=== PATIENT | male | born 1940 | race Caucasian/White ===

== ENCOUNTER 2017-03-06 14:28 | Inpatient (IN) ==
[2017-03-06] MEDS ORDERED: PANTOPRAZOLE 40 MG VIAL IV STA (16:17)
[2017-03-06] MEDS ORDERED: ONDANSETRON 4 MG/2 ML VIAL IV STA (16:17)
[2017-03-06] MEDS ORDERED: SODIUM CHLORIDE 0.9% 500 ML IV STA (16:17)
--- NOTE | 2017-03-06 16:25 | Emergency Department Note ---
Alexandru Hope Mantricia, am scribing for, and in the presence of, Erick Patel MD 15:28. Jorge Hope Charles R, MD, personally performed the services described in this documentation, ascribed by Jere Horvath in my presence, and it is both accurate and complete 625 . Arrival - Arrival Chief Complaint: GI Bleed/Rectal Stated Complaint: black stool, sob ED Nursing Triage Note: pt has an ulcer but is not taking med for it due to cost. has been taking herbals pepto. pt had 3 black stools this am Mode of Arrival: Ambulatory Limitations: No Limitations Source: Patient Time Seen by Provider: 03/06/17 14:56 - History of Present Illness HPI Narrative: Pt is a 76 y/o male ambulating to ED with c/o melena that onset yesterday. He reports that he has a stomach ulcer but denies taking an medications for it due to the cost. He reports that he has been practicing using herbals and taking pepto bismol for bloating. He denies taking any blood thinners and using kavita as a remedy. He states that he purposefully lost 40 pounds of weight in the last year for health benefits. Pt is unaware if he has had a colonoscopy. He reports no other complaints to ED. Onset (ago): hour(s) Consistency: constant Severity: mild Allergies/Adverse Reactions: Allergies Allergy/AdvReac Type Severity Reaction Status Date / Time No Known Allergies Allergy Unverified 03/06/17 14:33 Home Medications: Home Medications Medication Instructions Recorded Confirmed Type Unable To Obtain [Unable to Obtain] 03/06/17 03/06/17 History Review of System - Review of System 12 point system: reviewed and no additional remarkable complaints except as stated - Review of System Constitutional: Absent: chills, diaphoresis, fever Eyes: Absent: pain Respiratory: Present: other (SOB). Absent: cough Cardiovascular: Absent: chest pain Gastrointestinal: Present: melena. Absent: abdominal pain, nausea, vomiting, diarrhea Medical,Surgical,& Family Hx - Medical History Cardio: History of: Hypertension, Pacemaker - Social History Smoking Status: Never smoker Frequency of Alcohol Use: None Type of Drug Use: None Exam Vital Signs: Vital Signs Temperature 98.0 F 03/06/17 14:30 Pulse Rate 91 H 03/06/17 17:00 Respiratory Rate 18 03/06/17 17:00 Blood Pressure 127/107 03/06/17 17:00 O2 Sat by Pulse Oximetry 96 03/06/17 17:00 - General General appearance: alert, in no apparent distress - Head Head exam: Present: atraumatic, normocephalic, normal inspection - Eye Eye exam: Present: normal appearance, PERRL, EOMI - ENT ENT exam: Present: normal exam, normal oropharynx, mucous membranes moist, TM's normal bilaterally, normal external ear exam - Neck Neck exam: Present: normal inspection, full ROM, trachea midline. Absent: tenderness - Chest Chest inspection: Present: normal inspection, symmetric chest wall rise. Absent : tenderness - Respiratory Respiratory exam: Present: rales, rhonchi - Cardiovascular Cardiovascular exam: Present: normal rhythm, tachycardia, normal heart sounds - Abdominal Exam Abdominal exam: Present: soft, other (decreased bowel sounds). Absent: distention, tenderness, guarding, rebound - Rectal Exam Rectal exam: Present: heme (-) stool, hemorrhoids - Extremities Exam Extremities exam: Present: normal inspection, full ROM, normal capillary refill , other (+1 pitting edema LE bilat). Absent: tenderness, pedal edema - Back Exam Back exam: Present: full ROM, other (huge lipoma present ). Absent: tenderness - Neurological Exam Neurological exam: Present: alert, oriented X3, CN II-XII intact, normal gait, reflexes normal - Psychiatric Psychiatric exam: Present: normal affect, normal mood - Skin Skin exam: Present: warm, dry, intact, normal color Course - Consultations Consultation #1: Hospitalist will admit patient Time: 18:48 Results - Labs CBC & BMP: 03/06/17 15:31 03/06/17 15:31 Lab Results: I have reviewed the patients labs Disposition Clinical Impression: Fatty lipoma back, Atrial fibrillation with RVR, Uncontrolled hypertension, Acute dyspnea, Congestive heart failure, Exertional dyspnea Case discussed with: patient, patient's family Disposition: Still a Patient Condition: Stable Time of Disposition: 18:49
[2017-03-06 16:31] LABS: Basophils # 0.1 10*3/uL (0.0-0.2); Basophils % 1.5 % (0.0-0.8); Eosinophils # 0.2 10*3/uL (0.0-0.87); Eosinophils % 2.4 % (0.00-10.9); Hematocrit 48.5 VOL% (42.0-52.0); Hemoglobin 16.4 GM/DL (14.0-18.0); Immature Granulocytes % 0.1 %; Immature Granulocytes Absolute 0.01 #; Mean Corpuscular HGB Conc 33.8 GM/DL (32-36); Mean Corpuscular Hemoglobin 29 PG (27-34); Mean Corpuscular Volume 85.8 FL (87-102); Mean Platelet Volume 12.3 FL (9.6-12.0); Monocytes # 0.7 10*3/uL (0.11-0.8); Monocytes % 8.7 % (1.7-12.7); Neutrophils # 4.6 10*3/uL (1.4-7.4); Neutrophils % 60.3 % (38.7-73.9); Platelet Count 218 T/CUMM (130-400); Red Blood Count 5.65 MC/CUMM (3.8-5.5); Red Cell Distribution Width 15.9 % (9.3-17.3); White Blood Count 7.6 T/CUMM (4-12)
--- NOTE | 2017-03-06 16:33 | EKG Report ---
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
[2017-03-06 16:35] LABS: INR 1.1; PT Patient Result 11.8 SECS
[2017-03-06 16:42] LABS: Alanine Aminotransferase 21 U/L (16-61); Albumin 3.9 G/DL (3.4-5.0); Alkaline Phosphatase 58 U/L (45-117); Aspartate Amino Transferase 23 U/L (0-37); Blood Urea Nitrogen 25 MG/DL (7-18); Calcium 9.5 MG/DL (8.5-10.1); Total Protein 7.1 G/DL (6.4-8.3)
--- NOTE | 2017-03-06 16:42 | XRay Report ---
XR chest 1V portable Indication: Shortness of breath Comparison: None. Technique: Portable AP chest was performed. Findings: The heart borderline in size to minimally enlarged. 2-lead cardiac pacemaker is present. There is a large rounded density overlying the upper chest that partially obscures the lung parenchyma of the upper chest. Pulmonary vasculature demonstrates no specific abnormality. Hilar structures demonstrate fairly symmetric appearance. The lungs lungs demonstrate nonspecific pattern of interstitial stranding in the perihilar regions. Blunting of the costophrenic angles is present bilaterally slightly more prevalent on the right. Bones and soft tissues demonstrate no evidence of acute pathology. Impression: 1. Appearance of the chest could reflect mild congestive heart failure nonspecific features acute reflect minimal interstitial pulmonary edema. 2. Small bilateral pleural effusions are suggested. 3. Large density in the upper chest is uncertain etiology. 03/06/2017 4:38 PM PROCEDURE INTERPRETED AT [facility] DEPARTMENT OF RADIOLOGY Final Report Signed by: Dr. Ruy Shannon
[2017-03-06 16:43] LABS: Glucose 103 MG/DL (74-106); Magnesium 2.5 MG/DL (1.8-2.4); Osmolality,Calculated 284.3 MOS/KG (273-304); Potassium 4.2 MMOL/L (3.5-5.1); Sodium 141 MMOL/L (136-145); Troponin I Only < 0.015 NG/ML (0.00-0.045)
--- NOTE | 2017-03-06 16:43 | XRay Report ---
XR abdomen 2V Indication: Abdominal pain. Comparison: None. Technique: Flat and erect images of the abdomen were performed. Findings: Lung bases are clear. Small bilateral pleural effusions are suggested. No organomegaly suggested. The bowel gas pattern demonstrates no significant abnormality. Bony structures as well as soft tissues demonstrate no evidence of significant pathology. Impression: 1. No active process is suggested within the abdomen or pelvis. 03/06/2017 4:39 PM PROCEDURE INTERPRETED AT [facility] DEPARTMENT OF RADIOLOGY Final Report Signed by: Dr. Ruy Shannon
[2017-03-06] MEDS ORDERED: FUROSEMIDE 40 MG/4 ML VIAL IV STA (16:46)
[2017-03-06 17:10] LABS: Ammonia < 10 UMOL/L (11-32)
[2017-03-06] MEDS ORDERED: PANTOPRAZOLE 40 MG VIAL IV ONE (18:31)
[2017-03-06] MEDS ORDERED: FUROSEMIDE 40 MG/4 ML VIAL ONE (18:31)
[2017-03-06] MEDS ORDERED: ONDANSETRON 4 MG/2 ML VIAL ONE (18:31)
[2017-03-06] MEDS ORDERED: FUROSEMIDE 20 MG/2 ML VIAL ONE (18:31)
[2017-03-06] MEDS ORDERED: DILTIAZEM 50 MG/10 ML VIAL IV STA (18:32)
[2017-03-06] MEDS ORDERED: ASPIRIN EC 325 MG TABLET PO STA (18:50)
[2017-03-06] MEDS ORDERED: ASPIRIN EC 325 MG TABLET PO ONE (19:15)
[2017-03-06] MEDS ORDERED: DILTIAZEM 50 MG/10 ML VIAL IV ONE (19:15)
--- NOTE | 2017-03-06 19:34 | Hospitalist History & Physical ---
Assessment and Plan - Time spent with patient Time spent with patient: Greater than 30 minutes (1) Atrial fibrillation with RVR Status: Acute Assessment and plan: Patient has atrial fibrillation with rapid ventricular response. It sounds as if he has had this in the past along with sick sinus syndrome requiring pacemaker placement approximately 4 years ago. He has been off many medications in quite a while. We will admit him for continued cardiac monitoring. I will add beta-blockers to her current regimen for blood pressure and rate control. Will obtain echocardiogram in the a.m. to assess LV function , valvular anatomy, wall motion abnormality. Will consult cardiology to assist with further evaluation and recommendations. His increasing fatigue and progressive dyspnea is likely cardiac in etiology. We will also obtain TSH, hemoglobin A1c, serial cardiac biomarkers, lipid panel. Will begin Lovenox subcu 80 mg every 12 hours. Current Visit: Yes (2) Uncontrolled hypertension Status: Acute Assessment and plan: His hypertension for which he is currently taking no medications. Have added beta-brant at this time for rate control and blood pressure control. We will continue to monitor and make further adjustments based on his response and the results of the pending data. Current Visit: Yes (3) Weight loss Status: Chronic Assessment and plan: He has had 40-45 pound weight loss which he claims is intentional over the past 13 months. Continue to monitor and consider outpatient evaluation for other etiologies to include routine upper and lower endoscopic exam. Current Visit: Yes History of Present Illness Chief complaint: Fatigue, shortness of breath History of present illness: Mr. Wilkerson is a 76 year old white male who states that over the past 3 months he has noted progressive fatigue and dyspnea. This is worsened over the past 2- 3 weeks. He states he saw his primary care provider and was told that he had a stomach ulcer however he was unable to take his medication secondary to cost. He has been taking Pepto-Bismol and noted some dark stools which he thought was blood which caused him to come to the emergency department today. He was noted to have Hemoccult negative stool however during that evaluation was noted to have atrial fibrillation with rapid ventricular response. Patient states that he has had atrial fibrillation in the past and actually had a pacemaker placed in [facility] approximately 4 years ago. He states he is currently on no medications and prefers to use herbal or natural products. He has been on anticoagulation in the past but did not tolerate secondary to bleeding in his mouth, particularly Xarelto. He denies any chest pain, fever, chills, cough, sputum production, focal motor weakness or paresthesias. He states that he has awakened at night certainly on several occasions feeling somewhat disoriented like his oxygen level may be low. He denies any snoring but his indicates otherwise. He also notes approximately 40-45 pound weight loss which has been intentional over the past 13 months since her perinatal director in [facility] advised him to exercise and lose weight. He does have dyspnea on exertion but is unable to quantitate as it seems to be variable on a daily basis. He denies any orthopnea. He is a full code at this time. Home Medications Medication Instructions Recorded Confirmed Type Unable To Obtain [Unable to Obtain] 03/06/17 03/06/17 History Allergies Allergy/AdvReac Type Severity Reaction Status Date / Time No Known Allergies Allergy Unverified 03/06/17 14:33 Medical,Surgical,& Family Hx - Medical History Cardio: History of: Cardiac Dysrhythmia, Hypertension, Pacemaker Endocrine: History of: Diabetes Mellitus (NIDDM) (He states he was told he had borderline diabetes ) - Surgical History Abdominal Surgeries: Surgical HX of: Appendectomy - Family History Family History: Reports;: Family Heart Disease - Social History Smoking Status: Former smoker (Quit years ago) Frequency of Alcohol Use: None Type of Drug Use: None 12 point system: reviewed and no additional remarkable complaints except as stated Exam - Constitutional Vitals: Period Temp Pulse Resp BP Sys/Chambers Pulse Ox Last 24 Hr 98.0 F-98.0 F 91-126 18-18 127-163/98-113 96-99 General appearance: no acute distress - Head Head exam: Present: normocephalic, atraumatic - Eye Eye exam: Present: EOMI Pupils: Present: ALE - ENT ENT exam: Present: normal exam - Neck Neck exam: Present: normal inspection. Absent: lymphadenopathy, meningismus, tenderness, thyromegaly - Respiratory Respiratory exam: Present: chest wall tenderness, rales (Few faint rales in the bases bilaterally). Absent: stridor, wheezes - Cardiovascular Cardiovascular exam: Present: irregular rhythm, tachycardia. Absent: JVD, systolic murmur - GI/Abdominal GI/Abdominal exam: Present: normal bowel sounds, soft. Absent: mass, tenderness , rebound - Extremities Exam Extremities exam: Present: normal capillary refill, edema (Trace pedal edema). Absent: calf tenderness - Back Exam Back exam: Present: normal inspection - Neurological Exam Neurological exam: Present: alert, oriented X3, CN II-XII intact. Absent: motor sensory deficit - Psychiatric Psychiatric exam: Present: normal affect, normal mood. Absent: agitated, anxious - Skin Skin exam: Present: warm, dry, other (Large lipoma on upper back). Absent: erythema, petechiae, rash Results - Labs CBC & BMP: 03/06/17 15:31 03/06/17 15:31 Lab Results: I have reviewed the past 24 hour labs - EKG EKG shows: atrial fibrillation - Diagnostic Findings Procedure: Chest x-ray: report reviewed by me, KUB x-ray: report reviewed by me
[2017-03-06] MEDS ORDERED: ONDANSETRON 4 MG/2 ML VIAL IV PRN (21:23)
[2017-03-06] MEDS: METOPROLOL TARTRATE 25 MG TABLET PO SCH (21:35)
[2017-03-06] MEDS: ENOXAPARIN 80 MG/0.8 ML SYRINGE SUBCUT SCH (21:35)
[2017-03-07 01:52] LABS: Calcium 8.9 MG/DL (8.5-10.1); Magnesium 2.5 MG/DL (1.8-2.4); Potassium 3.9 MMOL/L (3.5-5.1); Risk Ratio 6.2; Thyroid Stimulating Hormone 2.65 uIU/ml (0.358-3.74); VLDL CHOLESTEROL 28.2 MG/DL
[2017-03-07 03:08] LABS: Basophils # 0.1 10*3/uL (0.0-0.2); Basophils % 1.2 % (0.0-0.8); Eosinophils # 0.3 10*3/uL (0.0-0.87); Eosinophils % 4.4 % (0.00-10.9); Hematocrit 43.4 VOL% (42.0-52.0); Immature Granulocytes % 0.3 %; Immature Granulocytes Absolute 0.02 #; Lymphocytes # 2.4 10*3/uL (1.4-4.0); Lymphocytes % 32.5 % (21.2-54.2); Mean Corpuscular HGB Conc 34.6 GM/DL (32-36); Mean Corpuscular Hemoglobin 30 PG (27-34); Mean Corpuscular Volume 85.8 FL (87-102); Mean Platelet Volume 11.5 FL (9.6-12.0); Monocytes # 0.7 10*3/uL (0.11-0.8); Monocytes % 9.6 % (1.7-12.7); Neutrophils # 3.8 10*3/uL (1.4-7.4); Platelet Count 190 T/CUMM (130-400); Red Blood Count 5.06 MC/CUMM (3.8-5.5); Red Cell Distribution Width 15.8 % (9.3-17.3); White Blood Count 7.3 T/CUMM (4-12)
[2017-03-07] MEDS: METOPROLOL TARTRATE 25 MG TABLET PO SCH ×2 (08:29→22:00)
[2017-03-07] MEDS: ASPIRIN 325 MG TABLET PO SCH (08:29)
[2017-03-07] MEDS: ENOXAPARIN 80 MG/0.8 ML SYRINGE SUBCUT SCH (08:30)
--- NOTE | 2017-03-07 14:34 | Hospitalist Progress Note ---
Assessment and Plan (1) Atrial fibrillation with RVR Status: Resolved Assessment and plan: Now rate controlled. Current Visit: Yes (2) Uncontrolled hypertension Status: Chronic Current Visit: Yes (3) Congestive heart failure Status: Acute Assessment and plan: Follow-up echocardiogram and cardiology consult. Current Visit: Yes Qualifiers: Congestive heart failure type: unspecified congestive heart failure type Congestive heart failure chronicity: unspecified congestive heart failure chronicity Qualified Code(s): I50.9 - Heart failure, unspecified Hospitalist: Subjective Interval history: Patient seen and examined. No acute events overnight. Case discussed with nursing staff. Labs reviewed. He feels much better this morning. Exam - Constitutional Vitals: Period Temp Pulse Resp BP Sys/Chambers Pulse Ox Last 24 Hr 97 F-97.6 F 67-119 16-20 114-163/64-113 90-99 Exam: Constitutional System: No distress. No tremulousness. Head: Normocephalic, atraumatic. Ears, Nose and Throat System: No pain or tenderness. No epistaxis or discharge Eyes System: Pupils equal, round, and reactive. Extraocular muscles intact. Neck: Supple, without adenopathy, No jugular venous distention. No thyromegaly, neck mass, or prior surgery apparent. Respiratory System: Chest clear to auscultation. Cardiovascular System: Heart with regular rate and rhythm. No murmur. GI System: Abdomen soft, nontender. Normo active bowel sounds present. Musculoskeletal System: limbs with no pedal edema. Full distal pulses. Neurological System: No discernable sensory deficit. No aphasia Psychiatric System: Conversation is rational Results - Labs CBC & BMP: 03/07/17 02:38 03/07/17 00:47 Lab Results: I have reviewed the past 24 hour labs - Diagnostic Findings Procedure: Chest x-ray: image reviewed by me, report reviewed by me
--- NOTE | 2017-03-07 15:15 | Cardiology Consult Note ---
Fawad Hope April RN, am scribing for, and in the presence of, Suresh Connell MD 15:15. Assessment and Plan - Time spent with patient Time spent with patient: Greater than 30 minutes (Due to assessment, planning, documentation, medication review) (1) Hypertension Status: Chronic Current Visit: Yes (2) Atrial fibrillation with RVR Status: Resolved Current Visit: Yes (3) Congestive heart failure Status: Acute Current Visit: Yes Qualifiers: Congestive heart failure type: unspecified congestive heart failure type Congestive heart failure chronicity: unspecified congestive heart failure chronicity Qualified Code(s): I50.9 - Heart failure, unspecified (4) Exertional dyspnea Status: Acute Current Visit: Yes History of Present Illness - Data of Consult Patient: new to practice Consult date: 03/06/17 Requesting Physician: Mitch Mclean - Consult Narrative Reason for consult: Atrial fibrillation, shortness of breath History of present illness: 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 Wilkerson is a 76 year old male who has never seen a process mold technician in this area. He moved to this area about 13 months ago. Before that time he had been in [place] and had seen several cardiologists there, most recently in [place], [place] about 2 years ago where he was told he had an enlarged heart. At that time they told him he needed to exercise and lose weight. He says he has exercised and changed his diet and has lost about 45 pounds in the last year. He saw a process mold technician in [place] about 4 years ago. According to him his heart rate was elevated and he was started on medicine which he thinks was digoxin. He says this medicine caused his heart rate to go to down to 18 bpm and he had a pacemaker placed at that time. He reports he was also started on Xarelto which caused issues with bleeding. He stopped the Xarelto and since then he has treated himself with kavita to keep his blood thin. He also says he had a stress test done about 4 years ago and is not aware of the results. Approximately 10 years ago he reports he had a stent placed, he has had no heart catheterization done since that time. Other medical history includes hypertension, possibly borderline diabetes, and pancreatitis. He has had an appendectomy. Family history is positive for father with heart disease and seizures and sister with stroke. He does not currently smoke states he smoked for about a year in 1989. We will try to get his cardiac records from [place]. For about the last 3 months he has not been sleeping well, stating he would wake up feeling short of breath and anxious. He also reports dyspnea on exertion during this time. For the last several months he is also experienced dizziness and weakness. Yesterday he noticed his stool was black so he presented to the emergency department for further evaluation. He was recently told he had an ulcer, but never picked up the medication that was ordered because of expense. He has been taking Pepto-Bismol, and thought the black stool could be related to the Pepto-Bismol. His blood pressure was elevated on admission, as high as 160/110. EKG on admission showed atrial fibrillation with heart rate of 96. According the vital sign record, his heart rate was also in the 120s while in the emergency department. Chest x-ray was indicative of mild congestive heart failure and small bilateral pleural effusions. Abdominal x-ray indicated no active process within the abdomen or pelvis. He was given Cardizem 2 mg IV 1 dose, Lasix 60 mg IV 1 dose in the emergency department and also started on aspirin 325 mg, Lopressor 25 mg p.o. twice daily , and Lovenox injections. He reports he has had good urine output since then and states his breathing is much better. He states he slept well last night. He said he started the night with the head of the bed elevated, but during the night he lowered it to flat and still was able to breathe without difficulty. He denies having any chest pain or palpitations. An echocardiogram has been ordered. athletic monitor currently shows atrial fibrillation with heart rates in the 90s. Lab data today: White count 7.3 hemoglobin 15.0 hematocrit 43.4 Sodium 143 potassium 3.9 chloride 109 CO2 26 BUN 27 creatinine 1.2 Hemoglobin A1c 5.8 Magnesium 2.5 Troponin negative 4 BNP 859 Triglycerides 141 cholesterol 186 LDL 135 HDL 30 Cardiology addendum patient examined chart reviewed discussed with nurse Luiza Celestin RN. Chronic atrial fibrillation admitted last night with rapid rate. Patient takes no medications. Status post dual-chamber pacemaker 2013 in [place]. Status post stent 2006 [place], [place]. 5 feet 8 inches tall 181 pounds. Patient has lost 45 pounds in the last 13 months by dieting. Gigantic lipoma upper back Chest x-ray shows cardiomegaly with CHF. BNP level 859. EKG shows atrial fibrillation with left axis deviation and diffuse ST-T wave changes. No history of angina. Developed bleeding gums with Xarelto in 2012 Remote tobacco abuse quit 30 years ago. No alcohol Plan IV Lasix Increase metoprolol 50 mg twice daily for rate control Echo Doppler Patient has refused Lovenox CC: Linda Nino MD - Home Medications and Allergies Home Medications: Home Medications Medication Instructions Recorded Confirmed Type Unable To Obtain [Unable to Obtain] 03/06/17 03/06/17 History Allergies/Adverse Reactions: Allergies Allergy/AdvReac Type Severity Reaction Status Date / Time No Known Allergies Allergy Unverified 03/06/17 14:33 - Constitutional Constitutional: Present: as per HPI - EENT Eyes: Present: requires corrective lense. Absent: blurry vision Ears: Present: decreased hearing, tinnitus. Absent: ear pain Nose, mouth and throat: Absent: dysphagia, epistaxis, headache(s), neck pain - Cardiovascular Cardiovascular: Present: dyspnea on exertion, lightheadedness, orthopnea. Absent: chest pain at rest, chest pain with activity, edema, radiating jaw, neck or arm pain, palpitations - Respiratory Respiratory: Present: cough, dyspnea on exertion. Absent: hemoptysis, wheezing - Gastrointestinal Gastrointestinal: Present: melena. Absent: abdominal pain, constipation, diarrhea, hematemesis, hematochezia, nausea, vomiting - Genitourinary Genitourinary: Absent: dysuria, hematuria - Musculoskeletal Musculoskeletal: Present: muscle weakness. Absent: back pain, limited range of motion - Neurological Neurological: Present: dizziness. Absent: confusion, frequent falls, headache(s ), syncope - Psychiatric Psychiatric: Present: anxiety. Absent: confusion, depression - Endocrine Endocrine: Present: fatigue - Hematologic/Lymphatic Hematologic/Lymphatic: Present: easy bleeding, easy bruising Medical,Surgical,& Family Hx - Medical History Cardio: History of: Cardiac Dysrhythmia, CAD (Patient states he had a stent placed 10 years ago), Hypertension, Pacemaker Endocrine: History of: Diabetes Mellitus (NIDDM) (He states he was told he had borderline diabetes ) Gastrointestinal: History of: Pancreatitis - Surgical History Cardiac Surgeries: Sugical HX of: Cardiac Catheterization (Patient reports stent 10 years ago, will try to get these records), Internal Defibrillator ( Patient reports pacemaker about 4 years ago, will try to get these records) Abdominal Surgeries: Surgical HX of: Appendectomy - Family History Family History: Reports;: Family Heart Disease (Father), Family Stroke (Sister) - Social History Smoking Status: Former smoker Have you smoked in the last 12 months: No Frequency of Alcohol Use: None Type of Drug Use: None Marital Status: Lives With:: Spouse Functional capacity: independent ambulation Physical Examination Vital Signs Temp Pulse Resp BP Pulse Ox 98.0 F 126 H 18 148/109 97 03/06/17 14:30 03/06/17 14:30 03/06/17 14:30 03/06/17 14:30 03/06/17 14:30 General: Present: Appears Well, No Apparent Distress HEENT: Present: PERRL, Mucus Membranes Moist Neck: Present: Supple Neck, Midline Trachea, No Bruit Cardiac: Present: Irregularly Regular, Tachycardia Lungs: Present: Normal Breath Sounds, No Wheeze, Rales, Rhonchi Neuro: Absent: Resting Tremor, Essential Tremor Abdomen: Present: Soft, Active Bowel Sounds, Non-Tender. Absent: Distended Skin: Absent: Rash, Suspicious Lesions Extremities: Present: No Edema, Normal Upper Extr. Pulses, Normal Lower Extr. Pulses Other: Lipoma noted to back Result/EKG - Labs CBC & BMP: 03/07/17 02:38 03/07/17 00:47 Lab Results: I have reviewed the past 24 hour labs Labs: Laboratory Results - last 24 hr 03/06/17 03/06/17 03/06/17 15:31 15:31 15:31 WBC 7.6 RBC 5.65 H Hgb 16.4 Hct 48.5 MCV 85.8 L MCH 29 MCHC 33.8 RDW 15.9 Plt Count 218 MPV 12.3 H Neut % (Auto) 60.3 Lymph % (Auto) 27.0 [place] % (Auto) 8.7 Eos % (Auto) 2.4 Baso % (Auto) 1.5 H Neut # (Auto) 4.6 Lymph # (Auto) 2.0 [place] # (Auto) 0.7 Eos # (Auto) 0.2 Baso # (Auto) 0.1 Immature Gran % 0.1 Nucleated RBC % 0.0 Immature Gran # 0.01 Nucleated RBCs # 0.00 INR 1.1 PT Patient/Control Mix 11.8 Sodium 141 Potassium 4.2 Chloride 109 H Carbon Dioxide 23 Anion Gap 13.2 BUN 25 H Creatinine 1.30 GFR Calculation 60 BUN/Creatinine Ratio 19.00 Glucose 103 Hemoglobin A1c Calculated Osmolality 284.3 Calcium 9.5 Magnesium 2.5 H Total Bilirubin 0.80 AST 23 ALT 21 Alkaline Phosphatase 58 Ammonia < 10 L Troponin I < 0.015 B-Natriuretic Peptide Total Protein 7.1 Albumin 3.9 Globulin 3.2 Albumin/Globulin Ratio 1.2 Triglycerides Cholesterol LDL Cholesterol VLDL Cholesterol HDL Cholesterol Heart Disease Risk Ratio Amylase Lipase Free T4 TSH 3rd Generation Blood Type Antibody Screen 03/06/17 03/06/17 03/06/17 15:31 15:31 16:46 WBC RBC Hgb Hct MCV MCH MCHC RDW Plt Count MPV Neut % (Auto) Lymph % (Auto) [place] % (Auto) Eos % (Auto) Baso % (Auto) Neut # (Auto) Lymph # (Auto) [place] # (Auto) Eos # (Auto) Baso # (Auto) Immature Gran % Nucleated RBC % Immature Gran # Nucleated RBCs # INR PT Patient/Control Mix Sodium Potassium Chloride Carbon Dioxide Anion Gap BUN Creatinine GFR Calculation BUN/Creatinine Ratio Glucose Hemoglobin A1c Calculated Osmolality Calcium Magnesium Total Bilirubin AST ALT Alkaline Phosphatase Ammonia Troponin I B-Natriuretic Peptide 859 H Total Protein Albumin Globulin Albumin/Globulin Ratio Triglycerides Cholesterol LDL Cholesterol VLDL Cholesterol HDL Cholesterol Heart Disease Risk Ratio Amylase 95 Lipase 281.0 Free T4 TSH 3rd Generation Blood Type O POSITIVE Antibody Screen Negative 03/06/17 03/06/17 03/07/17 21:01 23:27 00:47 WBC RBC Hgb Hct MCV MCH MCHC RDW Plt Count MPV Neut % (Auto) Lymph % (Auto) [place] % (Auto) Eos % (Auto) Baso % (Auto) Neut # (Auto) Lymph # (Auto) [place] # (Auto) Eos # (Auto) Baso # (Auto) Immature Gran % Nucleated RBC % Immature Gran # Nucleated RBCs # INR PT Patient/Control Mix Sodium 143 Potassium 3.9 Chloride 109 H Carbon Dioxide 26 Anion Gap 11.9 BUN 27 H Creatinine 1.20 GFR Calculation 67 BUN/Creatinine Ratio 22.00 H Glucose 95 Hemoglobin A1c Calculated Osmolality 289.0 Calcium 8.9 Magnesium 2.5 H Total Bilirubin AST ALT Alkaline Phosphatase Ammonia Troponin I < 0.015 < 0.015 B-Natriuretic Peptide Total Protein Albumin Globulin Albumin/Globulin Ratio Triglycerides 141 Cholesterol 186 LDL Cholesterol 135.0 VLDL Cholesterol 28.2 HDL Cholesterol 30 L Heart Disease Risk Ratio 6.20 Amylase Lipase Free T4 TSH 3rd Generation 2.650 Blood Type Antibody Screen 03/07/17 03/07/17 03/07/17 00:47 00:47 02:38 WBC 7.3 RBC 5.06 Hgb 15.0 Hct 43.4 MCV 85.8 L MCH 30 MCHC 34.6 RDW 15.8 Plt Count 190 MPV 11.5 Neut % (Auto) 52.0 Lymph % (Auto) 32.5 [place] % (Auto) 9.6 Eos % (Auto) 4.4 Baso % (Auto) 1.2 H Neut # (Auto) 3.8 Lymph # (Auto) 2.4 [place] # (Auto) 0.7 Eos # (Auto) 0.3 Baso # (Auto) 0.1 Immature Gran % 0.3 Nucleated RBC % 0.0 Immature Gran # 0.02 Nucleated RBCs # 0.00 INR PT Patient/Control Mix Sodium Potassium Chloride Carbon Dioxide Anion Gap BUN Creatinine GFR Calculation BUN/Creatinine Ratio Glucose Hemoglobin A1c Calculated Osmolality Calcium Magnesium Total Bilirubin AST ALT Alkaline Phosphatase Ammonia Troponin I < 0.015 B-Natriuretic Peptide Total Protein Albumin Globulin Albumin/Globulin Ratio Triglycerides Cholesterol LDL Cholesterol VLDL Cholesterol HDL Cholesterol Heart Disease Risk Ratio Amylase Lipase Free T4 1.04 TSH 3rd Generation Blood Type Antibody Screen 03/07/17 02:38 WBC RBC Hgb Hct MCV MCH MCHC RDW Plt Count MPV Neut % (Auto) Lymph % (Auto) [place] % (Auto) Eos % (Auto) Baso % (Auto) Neut # (Auto) Lymph # (Auto) [place] # (Auto) Eos # (Auto) Baso # (Auto) Immature Gran % Nucleated RBC % Immature Gran # Nucleated RBCs # INR PT Patient/Control Mix Sodium Potassium Chloride Carbon Dioxide Anion Gap BUN Creatinine GFR Calculation BUN/Creatinine Ratio Glucose Hemoglobin A1c 5.8 Calculated Osmolality Calcium Magnesium Total Bilirubin AST ALT Alkaline Phosphatase Ammonia Troponin I B-Natriuretic Peptide Total Protein Albumin Globulin Albumin/Globulin Ratio Triglycerides Cholesterol LDL Cholesterol VLDL Cholesterol HDL Cholesterol Heart Disease Risk Ratio Amylase Lipase Free T4 TSH 3rd Generation Blood Type Antibody Screen - Diagnostic Findings Procedure: Chest x-ray: report reviewed by me - EKG EKG results: interpreted by me EKG shows: atrial fibrillation Becki Hope Thomas, MD, personally performed the services described in this documentation, ascribed by Luiza Celestin RN in my presence, and it is both accurate and complete 515 .
--- NOTE | 2017-03-07 18:34 | ECHO Report ---
Kevin Wilkerson Exam Date: 03/07/2017 09:13 Referring Physician: Technologist: Vicki Farrell Age: 76 Ht (in): 67 Wt (lb): 183 Gender: M Exam Location: [facility] Echo Indications: SOB, fatIque, a fib, HTN, weight loss, dysrhythmia, pacemaker BP: 136 / 85 HR: 72 Rhythm: Sinus Technical Quality: IMPRESSIONS Four-chamber cardiac enlargement Ejection fraction 20% with global hypokinesis Grade 3 diastolic dysfunction Mild mitral regurgitation Mild aortic insufficiency Mild pulmonic insufficiency Mild tricuspid regurgitation with estimated right-sided pressure 35 mmHg plus right atrial pressure MEASUREMENTS (Male / Female) Normal Values 2D ECHO LV Diastolic Diameter PLAX 4.4 cm 4.2 - 5.9 / 3.9 - 5.3 cm LV Systolic Diameter PLAX 3.4 cm LV Fractional Shortening PLAX 23.0 % IVS Diastolic Thickness 1.1 cm 0.6 - 1.0 / 0.6 - 0.9 cm LVPW Diastolic Thickness 1.1 cm 0.6 - 1.0 / 0.6 - 0.9 cm Aortic Root Diameter 2.8 cm LA Systolic Diameter LX 4.9 cm 3.0 - 4.0 / 2.7 - 3.8 cm DOPPLER TR Peak Velocity 306.0 cm/s TR Peak Gradient 37.5 mmHg FINDINGS Left Ventricle Mild concentric left ventricular hypertrophy with diastolic dysfunction.left ventricular ejection fraction is estimated at 20%. Grade 3 diastolic dysfunction restrictive physiology Right Ventricle Normal right ventricular size. Right Atrium Moderately increased right atrial size. Left Atrium Severely increased left atrial size. Mitral Valve Mildly thickened mitral valve with mild mitral regurgitation. Aortic Valve Mild aortic valve sclerosis without stenosis. Mild aortic valve regurgitation. Tricuspid Valve Morphologically normal tricuspid valve. Trace to mild tricuspid valve regurgitation. Tricuspid regurgitation velocities suggest a RVSP of 35 mmHg + RAP. Pulmonic Valve Morphologically normal pulmonic valve. Mild pulmonary valve regurgitation. Pericardium No pericardial effusion. Aorta Normal size aortic root and proximal ascending aorta. Va Edgar (Electronically Signed) Final Date: 07 March 2017 18:33
[2017-03-08] MEDS: ENOXAPARIN 80 MG/0.8 ML SYRINGE SUBCUT SCH ×3 (02:11→22:09)
--- NOTE | 2017-03-08 07:26 | XRay Report ---
Exam: XR chest 1V portable Date: 03/08/2017 4:00 AM Indication: Follow-up CHF Comparison: 03/06/2017 Technical: AP Findings: Cardiomegaly is present with a cardiac pacing device from a left-sided approach with atrial ventricular leads. External cardiac leads are present. Interstitial edema is present with tiny effusions. No pneumothorax. Small nodules present in the left suprahilar region measuring approximately 7 mm Impression: 1. Cardiomegaly with interstitial edema CHF with cardiac pacing device 2. Small left suprahilar nodule measuring 7 mm, CT may be beneficial. PROCEDURE INTERPRETED AT [facility] DEPARTMENT OF RADIOLOGY Final Report Signed by: Dr. Mitch Calvillo
[2017-03-08] MEDS: ASPIRIN 325 MG TABLET PO SCH (09:03)
[2017-03-08] MEDS: METOPROLOL TARTRATE 25 MG TABLET PO SCH (09:03)
[2017-03-08 10:01] LABS: Basophils # 0.1 10*3/uL (0.0-0.2); Basophils % 1.2 % (0.0-0.8); Eosinophils # 0.2 10*3/uL (0.0-0.87); Eosinophils % 2.8 % (0.00-10.9); Hematocrit 51.5 VOL% (42.0-52.0); Immature Granulocytes % 0.3 %; Immature Granulocytes Absolute 0.03 #; Lymphocytes % 23.1 % (21.2-54.2); Mean Corpuscular HGB Conc 33.6 GM/DL (32-36); Mean Corpuscular Hemoglobin 29 PG (27-34); Mean Platelet Volume 11.8 FL (9.6-12.0); Monocytes # 0.7 10*3/uL (0.11-0.8); Monocytes % 7.8 % (1.7-12.7); Neutrophils # 5.6 10*3/uL (1.4-7.4); Neutrophils % 64.8 % (38.7-73.9); Red Blood Count 5.92 MC/CUMM (3.8-5.5); Red Cell Distribution Width 16.8 % (9.3-17.3); White Blood Count 8.6 T/CUMM (4-12)
[2017-03-08 10:07] LABS: Hemoglobin 17.3 GM/DL (14.0-18.0); Platelet Count 238 T/CUMM (130-400)
[2017-03-08 10:23] LABS: Calcium 9.1 MG/DL (8.5-10.1); Magnesium 2.6 MG/DL (1.8-2.4); Osmolality,Calculated 290.1 MOS/KG (273-304); Potassium 4.4 MMOL/L (3.5-5.1)
--- NOTE | 2017-03-08 15:37 | Cardiology Progress Note ---
Fawad Hoep April RN, am scribing for, and in the presence of, Suresh Connell MD 15:36. 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 Connell SUMMARY: Mr. Wilkerson is a 76 year old male who has never seen a lining caser in this area. He moved to this area about 13 months ago. Before that time he had been in [place] and had seen several cardiologists there, most recently in [place], [place] about 2 years ago where he was told he had an enlarged heart. At that time they told him he needed to exercise and lose weight. He says he has exercised and changed his diet and has lost about 45 pounds in the last year. He saw a lining caser in [place] about 4 years ago. According to him his heart rate was elevated and he was started on medicine which he thinks was digoxin. He says this medicine caused his heart rate to go to down to 18 bpm and he had a pacemaker placed at that time. He reports he was also started on Xarelto which caused issues with bleeding. He stopped the Xarelto and since then he has treated himself with kavita to keep his blood thin. He also says he had a stress test done about 4 years ago and is not aware of the results. Approximately 10 years ago he reports he had a stent placed, he has had no heart catheterization done since that time. Other medical history includes hypertension, possibly borderline diabetes, and pancreatitis. He has had an appendectomy. Family history is positive for father with heart disease and seizures and sister with stroke. He does not currently smoke states he smoked for about a year in 1989. We will try to get his cardiac records from [place]. For about the last 3 months he has not been sleeping well, stating he would wake up feeling short of breath and anxious. He also reports dyspnea on exertion during this time. For the last several months he is also experienced dizziness and weakness. Yesterday he noticed his stool was black so he presented to the emergency department for further evaluation. He was recently told he had an ulcer, but never picked up the medication that was ordered because of expense. He has been taking Pepto-Bismol, and thought the black stool could be related to the Pepto-Bismol. His blood pressure was elevated on admission, as high as 160/110. EKG on admission showed atrial fibrillation with heart rate of 96. According to the vital sign record, his heart rate was also in the 120s while in the emergency department. Chest x-ray was indicative of mild congestive heart failure and small bilateral pleural effusions. Abdominal x-ray indicated no active process within the abdomen or pelvis. He was given Cardizem 2 mg IV 1 dose, Lasix 60 mg IV 1 dose in the emergency department and also started on aspirin 325 mg, Lopressor 25 mg p.o. twice daily , and Lovenox injections. He reports he has had good urine output since then and states his breathing is much better. March 08, 2017: Mr. Wilkerson is resting in bed in no acute distress. He denies having any chest pain. He reports his breathing has improved and is back to normal. Earlier today he did experience some bloated sensation in his abdomen, but states that has gone now. hospital monitor currently shows atrial fibrillation with heart rates in the 70s. DANNI-VASC score of 3, he would benefit from anticoagulation. He is refusing Lovenox injections, and tells us he has refused Xarelto in the past. He is taking Lopressor 25 mg p.o. twice daily and aspirin 325 mg daily. Chest x-ray today showed cardiomegaly with interstitial edema and CHF. Small left suprahilar nodule was noted, CT was recommended. Will defer this to the attending physician. Echocardiogram showed ejection fraction of 20% with grade 3 diastolic dysfunction. Labs are pending at this time. Cardiology addendum Patient examined chart reviewed and discussed in detail with the patient and with his Adelso and with his friend Reuben. Echo shows ejection fraction of 20% with severe global hypokinesis with mildly dilated left atrium, mild MR, mild AI, moderate TR, PA pressure 45 with no effusion and grade 3 diastolic dysfunction. Chronic atrial fibrillation Cardiomyopathy New onset congestive heart failure, combined systolic and diastolic Noncompliance with medication. Status post dual-chamber pacemaker 2013 [place] Status post 05/2007 [place] 5 feet 8 181 pounds. Gigantic lipoma upper back. Remote tobacco abuse. No alcohol. Bleeding gums with Xarelto 2012. Plan Lasix 40 mg twice daily Lisinopril 2.5 mg twice daily Metoprolol 50 mg twice daily Begin Coumadin 5 mg daily Patient has no insurance. He is not a [place] citizen. He will be seen at the [facility]. I have spent well over 30 minutes explaining these issues to the patient and his and the importance of compliance and regular medical follow-up. BMP in a.m. Exam (Progress Note) - Constitutional Vitals: Period Temp Pulse Resp BP Sys/Chambers Pulse Ox Last 24 Hr 96.8 F-97.8 F 67-77 18-20 123-149/69-102 96-97 General appearance: no acute distress - Head Head exam: Absent: abrasion, hematoma - Eye Eye exam: Absent: periorbital swelling, laceration to eyelids - Respiratory Respiratory exam: Present: clear to auscultation bilaterally. Absent: accessory muscle use, chest wall tenderness - Cardiovascular Cardiovascular exam: Present: irregular rhythm - GI/Abdominal GI/Abdominal exam: Present: normal bowel sounds, soft. Absent: tenderness - Extremities Exam Extremities exam: Absent: edema - Back Exam Back exam: Present: other (Large lipoma) - Neurological Exam Neurological exam: Present: alert, oriented X3 - Psychiatric Psychiatric exam: Present: normal affect, normal mood - Skin Skin exam: Present: warm, dry Result/EKG - Labs CBC & BMP: 03/08/17 09:12 03/08/17 09:12 Lab Results: I have reviewed the past 24 hour labs Labs: Laboratory Results - last 24 hr 03/08/17 03/08/17 09:12 09:12 WBC 8.6 RBC 5.92 H Hgb 17.3 D Hct 51.5 MCV 87.0 MCH 29 MCHC 33.6 RDW 16.8 Plt Count 238 D MPV 11.8 Neut % (Auto) 64.8 Lymph % (Auto) 23.1 [place] % (Auto) 7.8 Eos % (Auto) 2.8 Baso % (Auto) 1.2 H Neut # (Auto) 5.6 Lymph # (Auto) 2.0 [place] # (Auto) 0.7 Eos # (Auto) 0.2 Baso # (Auto) 0.1 Immature Gran % 0.3 Nucleated RBC % 0.0 Immature Gran # 0.03 Nucleated RBCs # 0.00 Immature Plt Fraction 0.0 Sodium 142 Potassium 4.4 Chloride 105 Carbon Dioxide 29 Anion Gap 12.4 BUN 35 H Creatinine 1.30 GFR Calculation 61 BUN/Creatinine Ratio 26.00 H Glucose 103 Calculated Osmolality 290.1 Calcium 9.1 Magnesium 2.6 H - Diagnostic Findings Procedure: Chest x-ray: report reviewed by me - EKG EKG results: interpreted by ar EKG shows: atrial fibrillation Becki Hope Thomas, MD, personally performed the services described in this documentation, ascribed by Luiza Celestin RN in my presence, and it is both accurate and complete [id number] .
--- NOTE | 2017-03-08 16:26 | Hospitalist Progress Note ---
Assessment and Plan - Time spent with patient Time spent with patient: Less than 30 minutes (1) Chronic atrial fibrillation Status: Acute Assessment and plan: EF 20%. Cardiology is following. Starting Coumadin 5mg daily. Current Visit: Yes (2) Exertional dyspnea Status: Acute Assessment and plan: Feeling better this a.m. Able to ambulate further down garcia without any shortness of breath. Will continue to monitor. Current Visit: Yes (3) Hypertension Status: Chronic Assessment and plan: Cardiology following. Lisinopril 2.5mg BID daily. BP stable at present. Lasix 40mg BID daily. Will repeat labs in the a.m. Current Visit: Yes Hospitalist: Subjective Interval history: 03/08/17 Mr Wilkerson seen and he is feeling better this a.m. Chart reviewed. He verbalized breathing is better. He denies any nausea or vomiting. He states that he has been feeling a little bloated. Abdomen soft, without any pain or discomfort or tenderness. He verbalized being able to walk down the garcia of the Telemetry floor a little further this morning without shortness of breath. Exam - Constitutional Vitals: Period Temp Pulse Resp BP Sys/Chambers Pulse Ox Last 24 Hr 96.8 F-97.8 F 67-77 18-20 123-149/73-102 92-97 General appearance: normal weight, no acute distress - Head Head exam: Present: normal inspection - Eye Eye exam: Present: EOMI Pupils: Present: ALE - Neck Neck exam: Present: normal inspection. Absent: thyromegaly - Respiratory Respiratory exam: Present: clear to auscultation bilaterally. Absent: wheezes - Cardiovascular Cardiovascular exam: Present: irregular rhythm - GI/Abdominal GI/Abdominal exam: Present: normal bowel sounds, soft. Absent: tenderness, rebound - Extremities Exam Extremities exam: Present: full ROM. Absent: edema - Neurological Exam Neurological exam: Present: alert, oriented X3, CN II-XII intact - Psychiatric Psychiatric exam: Present: normal affect, normal mood - Skin Skin exam: Present: normal color, warm, dry Results - Labs CBC & BMP: 03/08/17 09:12 03/08/17 09:12 Lab Results: I have reviewed the past 24 hour labs
[2017-03-08] MEDS: WARFARIN 5 MG TABLET PO SCH (17:36)
[2017-03-08] MEDS: FUROSEMIDE 40 MG TABLET PO SCH (17:36)
[2017-03-08] MEDS: LISINOPRIL 2.5 MG TABLET PO SCH (22:11)
[2017-03-08] MEDS: METOPROLOL TARTRATE 50 MG TABLET PO SCH (22:11)
[2017-03-09 06:07] LABS: Basophils # 0.1 10*3/uL (0.0-0.2); Basophils % 1.1 % (0.0-0.8); Eosinophils # 0.3 10*3/uL (0.0-0.87); Eosinophils % 2.6 % (0.00-10.9); Hematocrit 48.4 VOL% (42.0-52.0); Hemoglobin 16.3 GM/DL (14.0-18.0); Immature Granulocytes % 0.5 %; Immature Granulocytes Absolute 0.05 #; Lymphocytes # 2.1 10*3/uL (1.4-4.0); Lymphocytes % 20.7 % (21.2-54.2); Mean Corpuscular HGB Conc 33.7 GM/DL (32-36); Mean Corpuscular Hemoglobin 29 PG (27-34); Mean Corpuscular Volume 86.9 FL (87-102); Mean Platelet Volume 12.3 FL (9.6-12.0); Monocytes # 0.8 10*3/uL (0.11-0.8); Monocytes % 7.6 % (1.7-12.7); Neutrophils # 6.9 10*3/uL (1.4-7.4); Neutrophils % 67.5 % (38.7-73.9); Platelet Count 224 T/CUMM (130-400); Red Blood Count 5.57 MC/CUMM (3.8-5.5); Red Cell Distribution Width 16.3 % (9.3-17.3); White Blood Count 10.2 T/CUMM (4-12)
[2017-03-09 06:21] LABS: INR 1.1; PT Patient Result 11.9 SECS
[2017-03-09 06:40] LABS: Calcium 9.4 MG/DL (8.5-10.1); Magnesium 2.4 MG/DL (1.8-2.4); Osmolality,Calculated 290.1 MOS/KG (273-304); Potassium 4.1 MMOL/L (3.5-5.1)
[2017-03-09] MEDS: ASPIRIN 325 MG TABLET PO SCH (08:28)
[2017-03-09] MEDS: METOPROLOL TARTRATE 50 MG TABLET PO SCH ×2 (08:29→21:30)
[2017-03-09] MEDS: FUROSEMIDE 40 MG TABLET PO SCH ×2 (08:29→15:57)
[2017-03-09] MEDS: LISINOPRIL 2.5 MG TABLET PO SCH (08:29)
[2017-03-09] MEDS: ENOXAPARIN 80 MG/0.8 ML SYRINGE SUBCUT SCH ×2 (08:30→21:30)
[2017-03-09] MEDS ORDERED: SODIUM PHOSPHATE ENEMA 133 ML BOTTLE RECTAL ONE (09:28)
--- NOTE | 2017-03-09 09:31 | Hospitalist Progress Note ---
Assessment and Plan - Time spent with patient Time spent with patient: Less than 30 minutes (1) Atrial fibrillation with RVR Status: Resolved Assessment and plan: Patient has atrial fibrillation with rapid ventricular response. It sounds as if he has had this in the past along with sick sinus syndrome requiring pacemaker placement approximately 4 years ago. He has been off many medications in quite a while. We will admit him for continued cardiac monitoring. I will add beta-blockers to her current regimen for blood pressure and rate control. Will obtain echocardiogram in the a.m. to assess LV function , valvular anatomy, wall motion abnormality. Will consult cardiology to assist with further evaluation and recommendations. His increasing fatigue and progressive dyspnea is likely cardiac in etiology. We will also obtain TSH, hemoglobin A1c, serial cardiac biomarkers, lipid panel. Will begin Lovenox subcu 80 mg every 12 hours. 03/09/17: Patient has been seen by cardiology. His rate is currently controlled and warfarin has been initiated. Current Visit: Yes (2) Uncontrolled hypertension Status: Chronic Assessment and plan: His hypertension for which he is currently taking no medications. Have added beta-brant at this time for rate control and blood pressure control. We will continue to monitor and make further adjustments based on his response and the results of the pending data. 03/09/17: Patient's blood pressure is improving. Continue current therapy. Current Visit: Yes (3) Congestive heart failure Status: Acute Assessment and plan: Patient has acute on chronic CHF, combined systolic and diastolic with ejection fraction at 20%. He is currently being treated medically and is improved symptomatically. We will continue to optimize therapy and patient can be discharged when agreeable with cardiology service. Current Visit: Yes Qualifiers: Congestive heart failure type: combined Congestive heart failure chronicity : acute Qualified Code(s): I50.41 - Acute combined systolic (congestive) and diastolic (congestive) heart failure (4) Weight loss Status: Chronic Assessment and plan: He has had 40-45 pound weight loss which he claims is intentional over the past 13 months. Continue to monitor and consider outpatient evaluation for other etiologies to include routine upper and lower endoscopic exam. Current Visit: Yes Hospitalist: Subjective Interval history: Patient is doing better today. He states his shortness of breath has improved and he is ambulating in the room. He denies any chest pain. Chart has been reviewed. He does complain of some constipation request a laxative. Exam - Constitutional Vitals: Period Temp Pulse Resp BP Sys/Chambers Pulse Ox Last 24 Hr 97.1 F-98.6 F 72-77 18-20 128-160/77-96 92-98 General appearance: no acute distress - Head Head exam: Present: normocephalic, atraumatic - Eye Eye exam: Present: EOMI Pupils: Present: ALE - ENT ENT exam: Present: normal exam - Neck Neck exam: Present: normal inspection - Respiratory Respiratory exam: Present: clear to auscultation bilaterally - Cardiovascular Cardiovascular exam: Present: irregular rhythm. Absent: tachycardia - GI/Abdominal GI/Abdominal exam: Present: normal bowel sounds, soft. Absent: tenderness - Extremities Exam Extremities exam: Absent: calf tenderness, edema - Back Exam Back exam: Present: normal inspection - Neurological Exam Neurological exam: Present: alert, oriented X3, CN II-XII intact. Absent: motor sensory deficit - Psychiatric Psychiatric exam: Present: normal affect, normal mood. Absent: agitated, anxious - Skin Skin exam: Present: warm, dry. Absent: erythema, rash Results - Labs CBC & BMP: 03/09/17 04:19 03/09/17 04:19 Lab Results: I have reviewed the past 24 hour labs
--- NOTE | 2017-03-09 11:18 | Cardiology Progress Note ---
Assessment and Plan (1) Hypertension Status: Chronic Current Visit: Yes (2) Atrial fibrillation with RVR Status: Resolved Current Visit: Yes (3) Congestive heart failure Status: Acute Assessment and plan: NYCA class II-III Current Visit: Yes Qualifiers: Congestive heart failure type: combined Congestive heart failure chronicity : acute Qualified Code(s): I50.41 - Acute combined systolic (congestive) and diastolic (congestive) heart failure (4) Exertional dyspnea Status: Acute Current Visit: Yes Cardiology - PN: Subj Interval history: Cardiology note 76 year old man with chronic A. fib admitted with congestive heart failure. Echo shows ejection fraction of 20% with severe global hypokinesis with mild MR , mild AI, moderate TR, PA pressure 45, no effusion and grade 3 diastolic dysfunction. Telemetry shows controlled atrial fib O2 sat 95% on room air. Blood pressure 132/80. Irregular rhythm soft systolic murmur Decreased breath sounds with few basilar crackles Abdomen benign No leg edema Lab data today White count 10.2 hemoglobin 16.3 hematocrit 48.4 INR 1.1 ProTime 11.9 Sodium 142 potassium 4.1 chloride 106 CO2 28 BUN 34 creatinine 1.20 Glucose 104 magnesium 2.4 Impression Cardiomyopathy EF 20% New onset congestive heart failure, combined systolic and diastolic Noncompliance with medications Status post dual-chamber pacemaker 2013 [place] Status post stent May 2007 [facility] 5 feet 8 inches tall 182 pounds Gigantic lipoma upper back Remote tobacco abuse. No alcohol. Bleeding gums with Xarelto 2012 Plan Lasix 40 mg twice daily Metoprolol 50 mg twice daily Increase lisinopril 5 mg twice daily 10 mg Coumadin today BMP and pro time in a.m. Home soon. Exam (Progress Note) - Constitutional Vitals: Period Temp Pulse Resp BP Sys/Chambers Pulse Ox Last 24 Hr 97.1 F-98.6 F 72-77 18-20 128-160/77-96 92-98 Result/EKG - Labs CBC & BMP: 03/09/17 04:19 03/09/17 04:19 Labs: Laboratory Results - last 24 hr 03/09/17 03/09/17 03/09/17 04:19 04:19 04:19 WBC 10.2 RBC 5.57 H Hgb 16.3 Hct 48.4 MCV 86.9 L MCH 29 MCHC 33.7 RDW 16.3 Plt Count 224 MPV 12.3 H Neut % (Auto) 67.5 Lymph % (Auto) 20.7 L [place] % (Auto) 7.6 Eos % (Auto) 2.6 Baso % (Auto) 1.1 H Neut # (Auto) 6.9 Lymph # (Auto) 2.1 [place] # (Auto) 0.8 Eos # (Auto) 0.3 Baso # (Auto) 0.1 Immature Gran % 0.5 Nucleated RBC % 0.0 Immature Gran # 0.05 Nucleated RBCs # 0.00 Immature Plt Fraction 0.0 INR 1.1 PT Patient/Control Mix 11.9 Sodium 142 Potassium 4.1 Chloride 106 Carbon Dioxide 28 Anion Gap 12.1 BUN 34 H Creatinine 1.20 GFR Calculation 67 BUN/Creatinine Ratio 28.00 H Glucose 104 Calculated Osmolality 290.1 Calcium 9.4 Magnesium 2.4
[2017-03-09] MEDS ORDERED: WARFARIN 5 MG TABLET PO ONE (11:25)
[2017-03-09] MEDS: DOCUSATE SODIUM 100 MG CAPSULE PO SCH (11:42)
[2017-03-09] MEDS: LISINOPRIL 5 MG TABLET PO SCH ×2 (11:44→21:30)
[2017-03-09] MEDS: WARFARIN 5 MG TABLET PO SCH (18:47)
[2017-03-10 05:58] LABS: INR 1.6; PT Patient Result 17.4 SECS
[2017-03-10 06:14] LABS: Basophils # 0.1 10*3/uL (0.0-0.2); Basophils % 0.8 % (0.0-0.8); Eosinophils # 0.1 10*3/uL (0.0-0.87); Eosinophils % 0.8 % (0.00-10.9); Hemoglobin 16.2 GM/DL (14.0-18.0); Immature Granulocytes % 0.4 %; Immature Granulocytes Absolute 0.05 #; Lymphocytes # 2.9 10*3/uL (1.4-4.0); Lymphocytes % 21.8 % (21.2-54.2); Mean Corpuscular HGB Conc 34.5 GM/DL (32-36); Mean Corpuscular Hemoglobin 29 PG (27-34); Mean Corpuscular Volume 85.3 FL (87-102); Mean Platelet Volume 12.2 FL (9.6-12.0); Monocytes # 1.2 10*3/uL (0.11-0.8); Monocytes % 8.6 % (1.7-12.7); Neutrophils % 67.6 % (38.7-73.9); Platelet Count 207 T/CUMM (130-400); Red Blood Count 5.51 MC/CUMM (3.8-5.5); Red Cell Distribution Width 15.7 % (9.3-17.3); White Blood Count 13.3 T/CUMM (4-12)
[2017-03-10 06:27] LABS: Magnesium 2.1 MG/DL (1.8-2.4); Osmolality,Calculated 286.1 MOS/KG (273-304)
[2017-03-10] MEDS: DOCUSATE SODIUM 100 MG CAPSULE PO SCH (08:45)
[2017-03-10] MEDS: ASPIRIN 325 MG TABLET PO SCH (08:45)
[2017-03-10] MEDS: METOPROLOL TARTRATE 50 MG TABLET PO SCH ×2 (08:45→21:42)
[2017-03-10] MEDS: LISINOPRIL 5 MG TABLET PO SCH ×2 (08:46→21:42)
[2017-03-10] MEDS: FUROSEMIDE 40 MG TABLET PO SCH ×2 (08:46→17:08)
[2017-03-10] MEDS: ENOXAPARIN 80 MG/0.8 ML SYRINGE SUBCUT SCH ×2 (08:47→21:42)
--- NOTE | 2017-03-10 09:55 | Hospitalist Progress Note ---
Assessment and Plan - Time spent with patient Time spent with patient: Less than 30 minutes (1) Atrial fibrillation with RVR Status: Resolved Assessment and plan: Patient has atrial fibrillation with rapid ventricular response. It sounds as if he has had this in the past along with sick sinus syndrome requiring pacemaker placement approximately 4 years ago. He has been off many medications in quite a while. We will admit him for continued cardiac monitoring. I will add beta-blockers to her current regimen for blood pressure and rate control. Will obtain echocardiogram in the a.m. to assess LV function , valvular anatomy, wall motion abnormality. Will consult cardiology to assist with further evaluation and recommendations. His increasing fatigue and progressive dyspnea is likely cardiac in etiology. We will also obtain TSH, hemoglobin A1c, serial cardiac biomarkers, lipid panel. Will begin Lovenox subcu 80 mg every 12 hours. 03/09/17: Patient has been seen by cardiology. His rate is currently controlled and warfarin has been initiated. 03/10/17: Patient's been followed by cardiology. He is improved symptomatically. INR is 1.6. Current Visit: Yes (2) Uncontrolled hypertension Status: Chronic Assessment and plan: His hypertension for which he is currently taking no medications. Have added beta-brant at this time for rate control and blood pressure control. We will continue to monitor and make further adjustments based on his response and the results of the pending data. 03/09/17: Patient's blood pressure is improving. Continue current therapy. 03/10/17: Patient currently hemodynamically stable. Continue current therapy. Current Visit: Yes (3) Congestive heart failure Status: Acute Assessment and plan: Patient has acute on chronic CHF, combined systolic and diastolic with ejection fraction at 20%. He is currently being treated medically and is improved symptomatically. We will continue to optimize therapy and patient can be discharged when agreeable with cardiology service. Current Visit: Yes Qualifiers: Congestive heart failure type: combined Congestive heart failure chronicity : acute Qualified Code(s): I50.41 - Acute combined systolic (congestive) and diastolic (congestive) heart failure (4) Weight loss Status: Chronic Assessment and plan: He has had 40-45 pound weight loss which he claims is intentional over the past 13 months. Continue to monitor and consider outpatient evaluation for other etiologies to include routine upper and lower endoscopic exam. Current Visit: Yes (5) Hyperlipidemia Status: Acute Assessment and plan: Lipitor has been added to his medical regimen. Current Visit: Yes (6) Pulmonary nodule Status: Acute Assessment and plan: Admission x-ray reveals a small left suprahilar nodule. I question his ability to have this evaluated as an outpatient, therefore we will go ahead and obtain CT of the chest. Current Visit: Yes Hospitalist: Subjective Interval history: He states he is doing better. He has no chest pain and has less shortness of breath. He denies any cough. He does state that yesterday he had 1 hour episode where he was extremely cold and chilled. This has resolved and he has had no issues since that time. He denies any nausea, vomiting, diarrhea, dysuria, hematuria, urinary frequency urgency or incontinence. Exam - Constitutional Vitals: Period Temp Pulse Resp BP Sys/Chambers Pulse Ox Last 24 Hr 97.1 F-98.5 F 16-98 16-73 114-164/66-106 91-96 General appearance: no acute distress - Head Head exam: Present: normocephalic, atraumatic - Eye Eye exam: Present: EOMI Pupils: Present: ALE - ENT ENT exam: Present: normal exam - Neck Neck exam: Present: normal inspection - Respiratory Respiratory exam: Present: clear to auscultation bilaterally. Absent: rales, rhonchi, wheezes - Cardiovascular Cardiovascular exam: Present: irregular rhythm. Absent: tachycardia - GI/Abdominal GI/Abdominal exam: Present: normal bowel sounds, soft. Absent: mass, tenderness , rebound - Extremities Exam Extremities exam: Absent: calf tenderness, edema - Neurological Exam Neurological exam: Present: alert, oriented X3, CN II-XII intact. Absent: motor sensory deficit - Psychiatric Psychiatric exam: Present: normal affect, normal mood. Absent: agitated, anxious - Skin Skin exam: Present: warm, dry. Absent: erythema, petechiae, rash Results - Labs CBC & BMP: 03/10/17 05:33 03/10/17 05:33 Lab Results: I have reviewed the past 24 hour labs Labs: INR 1.6 - Diagnostic Findings Procedure: Chest x-ray: report reviewed by me
--- NOTE | 2017-03-10 11:19 | CT Report ---
CT chest wo con Indication: Left suprahilar nodule. Comparison: None. Technique: CT chest was performed without administration of intravenous contrast. In addition to multiple contiguous axial source images, coronal and sagittal MPR series were provided. The CT examination was performed using one or more of the following dose reduction techniques: Automatic exposure control, adjustment of the mA and kV according to patient size, use of acute or iterative reconstruction techniques. Findings: To the right of midline within the upper back, there is a partially imaged fat attenuating lesion with increased stranding centrally and calcification centrally that in total measures 18.9 cm in transverse dimension, 12.1 cm in AP dimension, and at least 13 cm in craniocaudal dimension. The presence of thickened internal septation and calcification is worrisome for liposarcoma. Small noncalcified 2 to 3 mm nodule is present within the major fissure on the right image #67. Lungs otherwise appear clear. Bilateral pleural effusions are noted. Right-sided pleural effusion measures 3.5 cm in AP dimension. The left measures approximately 1.7 cm. Cardiac pacemaker leads are present. Numerous subcentimeter lymph nodes are noted in the right paratracheal region and AP window as well as prevascular space. Partially calcified right hilar lymph nodes additionally are present. The esophagus demonstrates no significant abnormality. Left lobe of the thyroid demonstrates heterogeneously attenuating nodule with some evidence of internal calcification. This measures 5.9 cm in AP dimension, 2.7 cm in transverse dimension, and 5 cm in craniocaudal dimension. Retrosternal extension is present. Osseous structures of the chest and lower neck as well as upper lumbar spine demonstrate no acute findings. Imaged intra-abdominal contents suggests no acute pathology. Ill-defined hypoattenuating lesion of the pancreatic body is suggested, but partially imaged. Impression: 1. Large fat attenuating lesion extending along the skin surface of the right upper back and lower neck has thickened internal septation and calcification. The lesion is worrisome for liposarcoma. 2. Bilateral pleural effusions, right larger than left. 3. Heterogeneously enhancing left thyroid lobe and nodule extend below the level of the sternum. This may simply reflect goiter, ultrasound is recommended for further characterization. 4. Ill-defined area of hypoattenuation within the body of the pancreas is partially imaged. 5. Small noncalcified pulmonary nodules present as detailed. Follow-up CT in 6 months is recommended to assess stability. 03/10/2017 11:11 AM PROCEDURE INTERPRETED AT [facility] DEPARTMENT OF RADIOLOGY Final Report Signed by: Dr. Ruy Shannon
[2017-03-10 12:35] LABS: Apearance,Urine CLEAR (Clear); Bilirubin,Urine Negative (Negative); Blood, Urine Negative (Negative); Glucose,Urine (UA) Negative (Negative); Hyaline Casts,Urine 10 /LPF (0-3); Ketones,Urine Negative (Negative); Mucus,Urine Occasional /LPF (Occasional); Nitrite,Urine Negative (Negative); Protein,Urine Negative; RBC,Urine 1 /HPF (0-4); Squamous Epithelial Cell,Urine Occasional /HPF (0-10); Urine Color Yellow (Yellow); Urine Specific Gravity 1.018 (1.001-1.035); WBC,Urine <1 /HPF (0-6)
--- NOTE | 2017-03-10 13:46 | Ultrasound Report ---
US thyroid Indication: Abnormal CT. Comparison: CT chest 12/09/2016. Technique: Using transcutaneous probe, routine thyroid ultrasound was performed. Ultrasound images were captured and stored. Findings: The right thyroid lobe measures 4.6 x 1.8 x 2.1 cm. The left thyroid measures 6.6 x 2.6 x 3.8 cm. The isthmus measures 4-5 mm. The right thyroid lobe demonstrates a diffusely nodular pattern of echotexture with more focal isoechoic to slightly hypoechoic nodule noted anteriorly within the right thyroid lobe. This nodule measures 7 x 7 x 8 mm. Margins are somewhat indistinct. No calcifications are associated. The left thyroid lobe additionally demonstrates enlargement as well as a coarsely nodular partially imaged nodule within the inferior aspect of the gland. Color Doppler demonstrates symmetric flow bilaterally within the thyroid gland. Impression: 1. Enlargement and coarsely nodular echotexture of the left thyroid lobe may reflect multinodular goiter. Additional nodule within the right thyroid lobe is predominantly solid with somewhat indistinct margins. At the minimum, follow-up ultrasound in 6 months is recommended. 03/10/2017 1:40 PM PROCEDURE INTERPRETED AT [facility] DEPARTMENT OF RADIOLOGY Final Report Signed by: Dr. Ruy Shannon
--- NOTE | 2017-03-10 14:52 | Cardiology Progress Note ---
Assessment and Plan (1) Hypertension Status: Chronic Current Visit: Yes (2) Atrial fibrillation with RVR Status: Resolved Current Visit: Yes (3) Congestive heart failure Status: Acute Assessment and plan: NYCA class II-III Current Visit: Yes Qualifiers: Congestive heart failure type: combined Congestive heart failure chronicity : acute Qualified Code(s): I50.41 - Acute combined systolic (congestive) and diastolic (congestive) heart failure (4) Exertional dyspnea Status: Acute Current Visit: Yes Cardiology - PN: Subj Interval history: Cardiology note 76-year-old man with chronic A. fib admitted with congestive heart failure. Echo showed ejection fraction 20% severe global hypokinesis with mild MR, mild AI, moderate TR PA pressure 45 and no effusion and grade 3 diastolic dysfunction. No chest pain or shortness of breath. O2 sat 96%. Blood pressure 134/74 in the left arm by md Telemetry shows controlled A. fib. Irregular rhythm with soft systolic murmur Decreased breath sounds with few crackles on the right side Abdomen nontender. No leg edema. Lab data today White count 13.3 hemoglobin 16.2 hematocrit 47.0 Pro time 17.4 INR 1.6 Sodium 142 potassium 4.0 chloride 106 CO2 30 BUN 26 creatinine 1.30 glucose 86 magnesium 2.1 Impression Cardiomyopathy EF 20% New onset congestive heart failure, combined systolic and diastolic Noncompliance with medications Status post dual-chamber pacemaker 2013 [place] Status post stent May 2007 [facility] 5 feet 8 inches tall 181 pounds Gigantic lipoma upper back Remote tobacco abuse No alcohol Bleeding gums with Xarelto 2012 Plan Lasix 40 mg twice daily Metoprolol 50 mg twice daily Increase lisinopril 10 mg twice daily Coumadin 10 mg today Pro time/INR in a.m. Home tomorrow Exam (Progress Note) - Constitutional Vitals: Period Temp Pulse Resp BP Sys/Chambers Pulse Ox Last 24 Hr 97.1 F-98.5 F 16-98 16-73 114-164/66-106 91-97 Result/EKG - Labs CBC & BMP: 03/10/17 05:33 03/10/17 05:33 Labs: Laboratory Results - last 24 hr 03/09/17 03/10/17 03/10/17 16:33 05:33 05:33 WBC 13.3 H D RBC 5.51 H Hgb 16.2 Hct 47.0 MCV 85.3 L MCH 29 MCHC 34.5 RDW 15.7 Plt Count 207 MPV 12.2 H Neut % (Auto) 67.6 Lymph % (Auto) 21.8 [place] % (Auto) 8.6 Eos % (Auto) 0.8 Baso % (Auto) 0.8 Neut # (Auto) 9.0 H Lymph # (Auto) 2.9 [place] # (Auto) 1.2 H Eos # (Auto) 0.1 Baso # (Auto) 0.1 Immature Gran % 0.4 Nucleated RBC % 0.0 Immature Gran # 0.05 Nucleated RBCs # 0.00 Immature Plt Fraction 0.0 INR 1.6 PT Patient/Control Mix 17.4 D Sodium Potassium Chloride Carbon Dioxide Anion Gap BUN Creatinine GFR Calculation BUN/Creatinine Ratio Glucose POC Glucose 79 Calculated Osmolality Calcium Magnesium Urine Color Urine Appearance Urine pH Ur Specific [place] Urine Protein Urine Glucose (UA) Urine Ketones Urine Blood Urine Nitrate Urine Bilirubin Urine Urobilinogen Urine Leukocytes Urine RBC Urine WBC Ur Squamous Epith Cells Hyaline Casts Urine Mucus Ur Culture Indicated? 03/10/17 03/10/17 05:33 12:30 WBC RBC Hgb Hct MCV MCH MCHC RDW Plt Count MPV Neut % (Auto) Lymph % (Auto) [place] % (Auto) Eos % (Auto) Baso % (Auto) Neut # (Auto) Lymph # (Auto) [place] # (Auto) Eos # (Auto) Baso # (Auto) Immature Gran % Nucleated RBC % Immature Gran # Nucleated RBCs # Immature Plt Fraction INR PT Patient/Control Mix Sodium 142 Potassium 4.0 Chloride 106 Carbon Dioxide 30 Anion Gap 10.0 BUN 26 H Creatinine 1.30 GFR Calculation 61 BUN/Creatinine Ratio 20.00 Glucose 86 POC Glucose Calculated Osmolality 286.1 Calcium 9.0 Magnesium 2.1 Urine Color Yellow Urine Appearance Clear Urine pH 5.0 Ur Specific [place] 1.018 Urine Protein Negative Urine Glucose (UA) Negative Urine Ketones Negative Urine Blood Negative Urine Nitrate Negative Urine Bilirubin Negative Urine Urobilinogen 2.0 H Urine Leukocytes Negative Urine RBC 1 Urine WBC <1 Ur Squamous Epith Cells Occasional Hyaline Casts 10 Urine Mucus Occasional Ur Culture Indicated? Not indicated
[2017-03-10] MEDS: WARFARIN 5 MG TABLET PO SCH (17:08)
[2017-03-10] MEDS ORDERED: WARFARIN 7.5 MG TABLET PO ONE (20:00)
[2017-03-10] MEDS ORDERED: ATORVASTATIN 20 MG TABLET PO SCH (21:00)
[2017-03-11 05:11] LABS: Basophils # 0.1 10*3/uL (0.0-0.2); Basophils % 1.3 % (0.0-0.8); Eosinophils # 0.3 10*3/uL (0.0-0.87); Eosinophils % 3.6 % (0.00-10.9); Hematocrit 44.5 VOL% (42.0-52.0); Hemoglobin 15.2 GM/DL (14.0-18.0); Immature Granulocytes % 0.2 %; Immature Granulocytes Absolute 0.02 #; Lymphocytes # 2.6 10*3/uL (1.4-4.0); Mean Corpuscular HGB Conc 34.2 GM/DL (32-36); Mean Corpuscular Hemoglobin 29 PG (27-34); Mean Corpuscular Volume 84.9 FL (87-102); Mean Platelet Volume 11.5 FL (9.6-12.0); Monocytes # 0.9 10*3/uL (0.11-0.8); Monocytes % 11.2 % (1.7-12.7); Neutrophils # 4.3 10*3/uL (1.4-7.4); Neutrophils % 52.7 % (38.7-73.9); Platelet Count 197 T/CUMM (130-400); Red Blood Count 5.24 MC/CUMM (3.8-5.5); Red Cell Distribution Width 15.6 % (9.3-17.3); White Blood Count 8.3 T/CUMM (4-12)
[2017-03-11 05:37] LABS: Calcium 8.9 MG/DL (8.5-10.1); Magnesium 2.1 MG/DL (1.8-2.4); Potassium 3.4 MMOL/L (3.5-5.1)
[2017-03-11 05:40] LABS: INR 2.4
[2017-03-11 06:13] LABS: PT Patient Result 26.8 SECS
[2017-03-11 08:10] VITALS: BP 153/89
[2017-03-11] MEDS: METOPROLOL TARTRATE 50 MG TABLET PO SCH (09:00)
[2017-03-11] MEDS: ASPIRIN 325 MG TABLET PO SCH (09:00)
[2017-03-11] MEDS: DOCUSATE SODIUM 100 MG CAPSULE PO SCH (09:00)
[2017-03-11] MEDS: FUROSEMIDE 40 MG TABLET PO SCH (09:00)
[2017-03-11] MEDS: LISINOPRIL 5 MG TABLET PO SCH (09:00)
[2017-03-11] MEDS: ENOXAPARIN 80 MG/0.8 ML SYRINGE SUBCUT SCH (09:05)
[2017-03-11] MEDS ORDERED: POTASSIUM CHLORIDE 20 MEQ TABLET PO ONE (09:26)
--- NOTE | 2017-03-11 09:46 | Discharge Summary ---
Hospital Course - Hospital Course Hospital Course: Mr. Wilkerson is a 76 year old white male who states that over the past 3 months he has noted progressive fatigue and dyspnea. Patient had a history of atrial fib and was on Xarelto but had bleeding in his mouth as a result. Patient presented to the emergency room in atrial fib with rapid ventricular response. Cardiology was consulted. Patient was given diltiazem IV and metoprolol 25 mg p.o. twice daily. He was given therapeutic doses of Lovenox and started on Coumadin. Patient has a paced rhythm. He is now therapeutic on his Coumadin. With an INR of 2.4. Echocardiogram showed an EF of 20% with diastolic dysfunction with a PAP of 35. Patient acute on chronic diastolic and systolic congestive heart failure exacerbation was diuresed with Lasix IV. Patient also had hypertension and was placed on lisinopril and tolerated this well. Patient looks good today and is tolerating his medicines well. He will be discharged home today to follow-up with Dr. Connell in 1 week. His INR will need to be rechecked on . We have put him on 5 mg every Saturday and Saturday and 2.5 mg every Saturday, Saturday and Saturday. Patient will be discharged home to follow Dr. Connell in 1 week and with [facility] until he has insurance. - Time spent with patient Time with patient DS: Less than 30 minutes (25 min) Specialty Discharge - Follow Up or Referrals Follow up with: Suresh Connell MD [Physician] - 1 Week (Patient needs to report to Coumadin clinic in 3 days (Saturday) for PT/INR check. Hospital follow up appointment with Dr. Connell in 1-2 weeks EKG.) Discharge Plan - Discharge Data Disposition: Disch To Home/Self Care Condition at Discharge: Stable Discharge Diet: heart healthy Activity: resume usual activities as tolerated Hygiene: no restrictions Weight Bearing at Discharge: full weight bearing Driving: no restrictions - Discharge Medications New Furosemide Tab [Lasix Tab] 40 mg PO BID DIURETIC #60 tablet Metoprolol Tartrate Tab [Lopressor Tab] 50 mg PO BID #60 tablet Warfarin [Coumadin] 5 mg PO DAILY@1800 #60 tablet Atorvastatin [Lipitor] 20 mg PO BEDTIME #30 tablet Lisinopril [Prinivil] 5 mg PO BID #60 tablet - Follow Up or Referral Follow Up: Suresh Connell MD [Physician] - 1 Week (Patient needs to report to Coumadin clinic in 3 days (Saturday) for PT/INR check. Hospital follow up appointment with Dr. Connell in 1-2 weeks EKG.) [facility] [Provider Group] - 2 Weeks - Forms/Instructions Additional Discharge Instructions: inr on , call results to Dr. Connell Exam - Constitutional Vitals: Period Temp Pulse Resp BP Sys/Chambers Pulse Ox Last 24 Hr 96.3 F-98.6 F 68-75 16-20 113-153/62-89 91-97 General appearance: normal weight, no acute distress - Respiratory Respiratory exam: Present: clear to auscultation bilaterally. Absent: rhonchi, wheezes - Cardiovascular Cardiovascular exam: Present: regular rate and rhythm. Absent: systolic murmur - GI/Abdominal GI/Abdominal exam: Present: normal bowel sounds, rebound. Absent: distended - Extremities Exam Extremities exam: Present: normal inspection, normal capillary refill Discharge Results Labs on day of discharge: Labs from last 24 hours 03/11/17 03/11/17 03/11/17 04:49 04:49 04:49 WBC 8.3 D RBC 5.24 Hgb 15.2 Hct 44.5 MCV 84.9 L MCH 29 MCHC 34.2 RDW 15.6 Plt Count 197 MPV 11.5 Neut % (Auto) 52.7 Lymph % (Auto) 31.0 [place] % (Auto) 11.2 Eos % (Auto) 3.6 Baso % (Auto) 1.3 H Neut # (Auto) 4.3 Lymph # (Auto) 2.6 [place] # (Auto) 0.9 H Eos # (Auto) 0.3 Baso # (Auto) 0.1 Immature Gran % 0.2 Nucleated RBC % 0.0 Immature Gran # 0.02 Nucleated RBCs # 0.00 Immature Plt Fraction 0.0 INR 2.4 PT Patient/Control Mix 26.8 D Sodium 143 Potassium 3.4 L Chloride 107 Carbon Dioxide 28 Anion Gap 11.4 BUN 26 H Creatinine 1.20 GFR Calculation 67 BUN/Creatinine Ratio 21.00 H Glucose 89 Calculated Osmolality 288.0 Calcium 8.9 Magnesium 2.1 Urine Color Urine Appearance Urine pH Ur Specific [place] Urine Protein Urine Glucose (UA) Urine Ketones Urine Blood Urine Nitrate Urine Bilirubin Urine Urobilinogen Urine Leukocytes Urine RBC Urine WBC Ur Squamous Epith Cells Hyaline Casts Urine Mucus Ur Culture Indicated? 03/10/17 12:30 WBC RBC Hgb Hct MCV MCH MCHC RDW Plt Count MPV Neut % (Auto) Lymph % (Auto) [place] % (Auto) Eos % (Auto) Baso % (Auto) Neut # (Auto) Lymph # (Auto) [place] # (Auto) Eos # (Auto) Baso # (Auto) Immature Gran % Nucleated RBC % Immature Gran # Nucleated RBCs # Immature Plt Fraction INR PT Patient/Control Mix Sodium Potassium Chloride Carbon Dioxide Anion Gap BUN Creatinine GFR Calculation BUN/Creatinine Ratio Glucose Calculated Osmolality Calcium Magnesium Urine Color Yellow Urine Appearance Clear Urine pH 5.0 Ur Specific [place] 1.018 Urine Protein Negative Urine Glucose (UA) Negative Urine Ketones Negative Urine Blood Negative Urine Nitrate Negative Urine Bilirubin Negative Urine Urobilinogen 2.0 H Urine Leukocytes Negative Urine RBC 1 Urine WBC <1 Ur Squamous Epith Cells Occasional Hyaline Casts 10 Urine Mucus Occasional Ur Culture Indicated? Not indicated DS: Provider Date of admission: 03/06/17 19:25 Primary care physician: . No PCP Attending physician on admission: Kari No MD Consults: 03/06/17 21:23 Consult to Physician [CONS] Routine Comment: Consulting Provider: Cardiology - [facility] Person Notified: Vicki Date Notified: 03/07/17 Time Notified: 07:55 03/06/17 23:45 Consult to Pastoral Services [CONS] Routine Comment: Pastoral Screen: Request [employer] Operator Visit Pastoral Screen Source of Request: Patient Discharging clinician: Angie Rosas MD
== END 2017-03-11 11:28 | disposition home or self-care (01) | DRG 308 ==
LOC: N.ED 14:28 → SUATTDRO 19:25 → N.EDINP 19:25 → N.TELEN 20:00
PROVIDERS: ADMIT Internal Medicine; ATTEND Internal Medicine